=== PATIENT | male | born 1955 | race Asian ===

== ENCOUNTER → 2023-01-19 | Outpatient (CLI) | payer BC | END | disposition home or self-care (01) | LOC: LABMN 14:54 | PROVIDERS: ATTEND Internal Medicine | DX: M16.0 Bilateral primary osteoarthritis of hip (principal); R93.41 Abnormal radiologic findings on diagnostic imaging of renal pelvis, ureter, or bladder; M46.1 Sacroiliitis, not elsewhere classified; M47.816 Spondylosis without myelopathy or radiculopathy, lumbar region; M77.8 Other enthesopathies, not elsewhere classified | CPT/HCPCS: 72170 ==

== ENCOUNTER 2023-07-23 08:24 | Emergency (ER) | payer BC ==
[~2023-07-23] VITALS: Ht 160 cm; Wt 69.0 kg
[2023-07-23 08:32] VITALS: TEMP 98.1
[2023-07-23] MEDS ORDERED: IBUPROFEN 600 MG TABLET PO ONE (08:45)
[2023-07-23 08:52] LABS: GLUCOMETER DEV NAME(LOC) ERT.5; GLUCOSE,POINT OF CARE 105 MG/DL (70-110)
[2023-07-23 09:14] LABS: COVID AG,FIA SOURCE NASAL SWAB
[2023-07-23 09:42] LABS: SARS-COV2 (COVID) ANTIGEN,FIA Negative (Negative)
[2023-07-23 09:43] LABS: INFLUENZA TYPE A NEGATIVE FOR TYPE A (NEGATIVE); INFLUENZA TYPE B NEGATIVE FOR TYPE B (NEGATIVE)
[2023-07-23 09:46] VITALS: BP 150/83; PULSE 82; RESP 16
== END 2023-07-23 10:04 | disposition home or self-care (01) ==
LOC: EMS 08:25
DX: B34.9 Viral infection, unspecified (principal); E11.9 Type 2 diabetes mellitus without complications; I10 Essential (primary) hypertension; F17.210 Nicotine dependence, cigarettes, uncomplicated; Z20.822 Contact with and (suspected) exposure to COVID-19
CPT/HCPCS: 82962; 87804; 99283

== ENCOUNTER 2023-07-27 13:07 | Emergency (ER) | payer BC, MEDICARE ==
[~2023-07-27] VITALS: Ht 160 cm; Wt 68.2 kg
[2023-07-27 13:13] VITALS: TEMP 98.2
[2023-07-27 14:22] VITALS: BP 147/79; PULSE 78; RESP 18
== END 2023-07-27 14:45 | disposition home or self-care (01) ==
LOC: EMS 13:07
DX: R52 Pain, unspecified (principal); E11.9 Type 2 diabetes mellitus without complications; I10 Essential (primary) hypertension; F17.210 Nicotine dependence, cigarettes, uncomplicated; Z13.9 Encounter for screening, unspecified
CPT/HCPCS: 99281; Z7502